=== PATIENT | male | born 1975 | race Caucasian/White ===

== ENCOUNTER 2020-09-27 13:17 | Inpatient (IN) | payer MEDICARE, OTHER ==
[~2020-09-27] VITALS: Ht 167.6 cm; Wt 119.4 kg
[~2020-09-27 13:17] MED LIST: ASPI81CH43 PO; ATOR10TA PO; CHOL200021 PO; INSUINJ18 SC; MET50T PO; METF-372 PO
[2020-09-27 15:10] LABS: Eosinophils # (auto) 0.1 10 ^3/uL (0-0.8); Lymphocytes # (auto) 1.5 10 ^3/uL (0.4-5.4)
[2020-09-27 15:13] LABS: Basophils # (auto) 0.1 10 ^3/uL (0-0.2)
[2020-09-27 15:17] LABS: Basophils % (auto) 1.1 % (0.0-2.0); Eosinophils % (auto) 0.6 % (0.0-7.0); Nucleated Red Blood Cells % 0.1 %
[2020-09-27 15:19] LABS: Hematocrit 52.6 % (41.0-53.0); Lymphocytes % (auto) 14.3 % (10.0-50.0); Mean Corpuscular Hemoglobin 32.1 pg (28.0-32.0); Mean Corpuscular Hgb Conc. 34.3 g/dL (32.0-36.0); Mean Corpuscular Volume 93.6 fL (80.0-100.0); Monocytes # (auto) 0.6 10 ^3/uL (0-1.3); Monocytes % (auto) 5.5 % (0.0-12.0); Neutrophils # (auto) 8.3 10 ^3/uL (1.6-8.6); Neutrophils % (auto) 78.5 % (37.0-80.0); Red Blood Cells 5.62 10^6/uL (4.5-5.90); Red Cell Distribution Width 14.6 % (11.8-14.3); White Blood Cell 10.5 10^3/uL (4.4-10.8)
[2020-09-27 15:23] LABS: Partial Thromboplastin Time 25.5 sec (23.6-33.0)
[2020-09-27 15:34] LABS: Albumin 3.2 g/dL (3.4-5.0); Magnesium 2.1 mg/dL (1.6-2.6); Potassium 4.8 mmol/L (3.5-5.1)
[2020-09-27 15:42] LABS: BUN/Creatinine Ratio 15.8; Bilirubin, Total 2.2 mg/dL (0.2-1.0); Total Protein 8.6 g/dL (6.4-8.2)
[2020-09-27] MEDS ORDERED: MORPHINE SULFATE INJECTION 2 MG/ML SYRG IV PRN ×3 (19:15→20:00)
[2020-09-27] MEDS ORDERED: NITROGLYCERIN 0.4 MG SL TAB SL PRN ×2 (19:15→20:00)
[2020-09-27] MEDS ORDERED: DEXTROSE (50%) 50ML SYRG IV PRN (19:30)
[2020-09-27] MEDS ORDERED: LACTATED RINGER'S 2,000 ML IV ONE (19:30)
[2020-09-27] MEDS ORDERED: InsuLIN REG 1unit/0.01ml Soln (100units/ml) IV ONE (19:30)
[2020-09-27] MEDS: SOD CHL 0.9%/ KCL 20MEQ 1,000 ML IV SCH (19:30)
[2020-09-27] MEDS ORDERED: SODIUM CHLORIDE 0.9% 3,000 ML IV ONE (19:30)
[2020-09-27] MEDS ORDERED: cefTRIAXone 1GM/50ML D5W 50 ML IV ONE (19:30)
[2020-09-27] MEDS ORDERED: AZITHROMYCIN 500MG/ 250ML 250 ML IV ONE (19:30)
[2020-09-27] MEDS ORDERED: ENOXAPARIN SOD 60 MG/0.6 ML SYRINGE SC ONE (19:30)
[2020-09-27] MEDS ORDERED: THIAMINE 100mg/ml INJ (200mg/2ml VIAL) IV ONE (19:45)
[2020-09-27] MEDS ORDERED: ATORVASTATIN 20 MG TAB PO ONE (19:45)
[2020-09-27] MEDS ORDERED: hydrALAZINE HCL 20 MG/ML VL IV PRN (19:45)
[2020-09-27] MEDS ORDERED: CHOLECALCIFEROL (VITD3) 2,000 UNIT CAP/TAB PO ONE (19:45)
[2020-09-27] MEDS ORDERED: DOCUSATE SOD 100 MG CAP PO PRN (20:00)
[2020-09-27] MEDS ORDERED: ACETAMINOPHEN 325 MG TAB PO PRN (20:00)
[2020-09-27] MEDS ORDERED: LORazepam 0.5 MG TAB PO PRN (20:00)
[2020-09-27] MEDS ORDERED: HYDROcodone-ACET 5/325MG TAB PO PRN (20:00)
[2020-09-27] MEDS ORDERED: METOCLOPRAMIDE HCL 5MG/ml INJ 2ml VIAL IV PRN (20:00)
[2020-09-27 20:28] LABS: Cholesterol 224 mg/dL (< 200)
[2020-09-27 20:31] LABS: HDL Cholesterol 40 mg/dL (40-59); LDL Cholesterol 153 mg/dL (< 100); Triglycerides 220 mg/dL (< 150)
[2020-09-27 20:32] LABS: Thyroid Stimulating Hormone 3.52 uIU/mL (0.358-3.74)
[2020-09-27] MEDS: SODIUM CHLORIDE 0.9% 1,000 ML IV SCH (23:29)
[2020-09-28] MEDS: FAMOTIDINE (10MG/ML) 2ML VL IV SCH ×3 (00:16→21:49)
[2020-09-28] MEDS: SODIUM CHLORIDE 0.9% 1,000 ML IV SCH ×5 (00:30→22:55)
[2020-09-28] MEDS: SOD CHL 0.9%/ KCL 20MEQ 1,000 ML IV SCH ×3 (03:50→20:30)
[2020-09-28] MEDS ORDERED: DEXTROSE (50%) 50ML SYRG IV PRN (04:15)
[2020-09-28] MEDS: ACCU-CHEK COMFORT CURVE STRIP VI SCH ×5 (04:23→20:50)
[2020-09-28] MEDS: InsuLIN REG 1unit/0.01ml Soln (100units/ml) SC SCH ×5 (04:25→20:54)
[2020-09-28 07:56] LABS: Urine Bacteria NONE SEEN /hpf (None Seen); Urine Blood Negative /uL (Negative); Urine Specific Gravity 1.027 (1.001-1.035); Urine WBC 1 /hpf (0 - 3)
[2020-09-28] MEDS ORDERED: ACCU-CHEK COMFORT CURVE STRIP VI SCH ×2 (08:00)
[2020-09-28] MEDS ORDERED: InsuLIN REG 1unit/0.01ml Soln (100units/ml) SC SCH ×2 (08:00)
[2020-09-28 08:14] LABS: Amphetamine Screen, Urine NEGATIVE (NEGATIVE); Barbiturate Scree,Urine NEGATIVE (NEGATIVE); Benzodiazephine Screen, Urine NEGATIVE (NEGATIVE); Cannabinoid Screen, Urine NEGATIVE (NEGATIVE); Cocaine Screen, Urine NEGATIVE (NEGATIVE); Opiate Scree,Urine NEGATIVE (NEGATIVE); Phencyclidine Screen, Urine NEGATIVE (NEGATIVE)
[2020-09-28] MEDS: cefTRIAXone 1GM/50ML D5W 50 ML IV SCH (10:01)
[2020-09-28] MEDS: ASPirin 81 mg TAB PO SCH (10:30)
[2020-09-28] MEDS: AZITHROMYCIN 500MG/ 250ML 250 ML IV SCH (10:30)
[2020-09-28] MEDS: METOPROLOL SUCCINATE XL 50 MG TAB PO SCH (10:31)
[2020-09-28] MEDS: CYANOCOBALAMIN 500 MCG TAB PO SCH (10:31)
[2020-09-28] MEDS: CHOLECALCIFEROL (VITD3) 2,000 UNIT CAP/TAB PO SCH (10:31)
[2020-09-28] MEDS: LISINOPRIL 20 MG TAB PO SCH (10:32)
[2020-09-28] MEDS: FUROSEMIDE 20 MG/2 ML VIAL IV SCH (18:21)
[2020-09-28 18:22] VITALS: BP 130/75
[2020-09-28 18:25] VITALS: BP 130/75
[2020-09-28] MEDS: ATORVASTATIN 20 MG TAB PO SCH (21:49)
[2020-09-28 22:00] VITALS: BP 131/83
[2020-09-28 22:57] LABS: Calcium 7.9 mg/dL (8.5-10.1)
[2020-09-29] MEDS: ACCU-CHEK COMFORT CURVE STRIP VI SCH ×7 (00:06→23:55)
[2020-09-29] MEDS: InsuLIN REG 1unit/0.01ml Soln (100units/ml) SC SCH ×6 (00:12→20:22)
[2020-09-29] MEDS: SODIUM CHLORIDE 0.9% 1,000 ML IV SCH ×5 (01:30→20:22)
[2020-09-29 03:00] LABS: BUN/Creatinine Ratio 17.9; Calcium 7.5 mg/dL (8.5-10.1); Potassium 3.4 mmol/L (3.5-5.1)
[2020-09-29] MEDS: SOD CHL 0.9%/ KCL 20MEQ 1,000 ML IV SCH ×3 (03:30→20:04)
[2020-09-29 05:00] VITALS: BP 108/63
[2020-09-29] MEDS: FUROSEMIDE 20 MG/2 ML VIAL IV SCH ×2 (06:00→18:00)
[2020-09-29 06:33] LABS: Potassium 3.6 mmol/L (3.5-5.1)
[2020-09-29 06:58] LABS: BUN/Creatinine Ratio 18.6; Calcium 7.6 mg/dL (8.5-10.1)
[2020-09-29 08:34] VITALS: BP 121/78
[2020-09-29] MEDS: cefTRIAXone 1GM/50ML D5W 50 ML IV SCH (09:00)
[2020-09-29 09:45] LABS: Calcium 7.8 mg/dL (8.5-10.1)
[2020-09-29 09:47] LABS: BUN/Creatinine Ratio 16.9
[2020-09-29] MEDS: AZITHROMYCIN 500MG/ 250ML 250 ML IV SCH (10:00)
[2020-09-29] MEDS: CYANOCOBALAMIN 500 MCG TAB PO SCH (10:00)
[2020-09-29] MEDS: FAMOTIDINE (10MG/ML) 2ML VL IV SCH ×2 (10:00→22:29)
[2020-09-29] MEDS: LISINOPRIL 20 MG TAB PO SCH (10:44)
[2020-09-29] MEDS: CHOLECALCIFEROL (VITD3) 2,000 UNIT CAP/TAB PO SCH (10:44)
[2020-09-29] MEDS: ASPirin 81 mg TAB PO SCH (10:44)
[2020-09-29] MEDS: METOPROLOL SUCCINATE XL 50 MG TAB PO SCH (10:45)
[2020-09-29 13:00] VITALS: BP 130/82
[2020-09-29 15:44] LABS: BUN/Creatinine Ratio 13.8; Calcium 8.2 mg/dL (8.5-10.1); Potassium 4.1 mmol/L (3.5-5.1)
[2020-09-29 17:00] VITALS: BP 146/75
[2020-09-29 19:28] LABS: BUN/Creatinine Ratio 12.2; Calcium 8.3 mg/dL (8.5-10.1)
[2020-09-29] MEDS ORDERED: LORazepam 2MG/ML-1ML VIAL IV PRN (20:00)
[2020-09-29 22:00] VITALS: BP 118/77
[2020-09-29] MEDS: ATORVASTATIN 20 MG TAB PO SCH (22:29)
[2020-09-30] MEDS: InsuLIN REG 1unit/0.01ml Soln (100units/ml) SC SCH ×3 (00:01→08:18)
[2020-09-30 00:19] LABS: BUN/Creatinine Ratio 18.2; Calcium 7.9 mg/dL (8.5-10.1); Potassium 4.1 mmol/L (3.5-5.1)
[2020-09-30] MEDS: SODIUM CHLORIDE 0.9% 1,000 ML IV SCH ×2 (02:13→06:55)
[2020-09-30] MEDS: ACCU-CHEK COMFORT CURVE STRIP VI SCH ×2 (04:11→08:16)
[2020-09-30 05:00] VITALS: BP 125/72
[2020-09-30] MEDS: SOD CHL 0.9%/ KCL 20MEQ 1,000 ML IV SCH (05:42)
[2020-09-30] MEDS: FUROSEMIDE 20 MG/2 ML VIAL IV SCH (05:52)
[2020-09-30 09:00] VITALS: BP 115/71
[2020-09-30] MEDS: ASPirin 81 mg TAB PO SCH (10:00)
[2020-09-30] MEDS: LISINOPRIL 20 MG TAB PO SCH (10:00)
[2020-09-30] MEDS: CHOLECALCIFEROL (VITD3) 2,000 UNIT CAP/TAB PO SCH (10:00)
[2020-09-30] MEDS: CYANOCOBALAMIN 500 MCG TAB PO SCH (10:00)
[2020-09-30] MEDS: METOPROLOL SUCCINATE XL 50 MG TAB PO SCH (10:00)
[2020-09-30 10:25] VITALS: BP 125/72
== END 2020-09-30 13:53 | disposition home or self-care (01) | DRG 196 ==
LOC: ER 13:17 → TELE 19:14 → TELE-WESTW 09-28 17:40
PROVIDERS: ADMIT Hospitalist; ATTEND Family Medicine
DX: J84.9 Interstitial pulmonary disease, unspecified (principal); E11.00 Type 2 diabetes mellitus with hyperosmolarity without nonketotic hyperglycemic-hyperosmolar coma (NKHHC); N17.0 Acute kidney failure with tubular necrosis; J15.9 Unspecified bacterial pneumonia; I24.9 Acute ischemic heart disease, unspecified; E87.1 Hypo-osmolality and hyponatremia; Z68.41 Body mass index [BMI] 40.0-44.9, adult; I42.0 Dilated cardiomyopathy; R07.89 Other chest pain; E11.65 Type 2 diabetes mellitus with hyperglycemia; E88.09 Other disorders of plasma-protein metabolism, not elsewhere classified; E66.01 Morbid (severe) obesity due to excess calories; Q90.9 Down syndrome, unspecified; E78.5 Hyperlipidemia, unspecified; I10 Essential (primary) hypertension; Z20.822 Contact with and (suspected) exposure to COVID-19; D75.1 Secondary polycythemia; E78.00 Pure hypercholesterolemia, unspecified; E86.9 Volume depletion, unspecified; F79 Unspecified intellectual disabilities; G47.30 Sleep apnea, unspecified; H91.90 Unspecified hearing loss, unspecified ear; R56.9 Unspecified convulsions; Z79.4 Long term (current) use of insulin; Z79.82 Long term (current) use of aspirin; Z82.49 Family history of ischemic heart disease and other diseases of the circulatory system; Z83.3 Family history of diabetes mellitus
CPT/HCPCS: 36415; 71045; 80048; 80053; 80061; 80307; 81001; 82962; 83036; 83615; 83735; 83880; 84443; 84484; 85025; 85610; 85730; 86141; 87040; 87086; 87426; 93005; 93306; G0378; J0696; J1815; J3490